=== PATIENT | male | born 1970 | race African-American/Black ===

== ENCOUNTER 2021-10-25 13:14 | Inpatient (IN) | payer OTHER ==
[2021-10-25] MEDS ORDERED: NICOTINE 10 MG CARTRIDGE (INHALER) IH PRN (13:37)
[2021-10-25] MEDS ORDERED: IBUPROFEN 400 MG TABLET (FP) PO PRN (13:37)
[2021-10-25] MEDS ORDERED: LOPERAMIDE HCL 2 MG CAPSULE PO PRN (13:37)
[2021-10-25] MEDS ORDERED: MENTHOL/PHENOL 1 EACH UD MM PRN (13:37)
[2021-10-25] MEDS ORDERED: ONDANSETRON *ODT* 4 MG TABLET SL PRN (13:37)
[2021-10-25] MEDS ORDERED: ACETAMINOPHEN 325 MG TABLET (FP) PO PRN (13:37)
[2021-10-25] MEDS ORDERED: BISMUTH SUBSALICYLATE 262 MG/15 ML BTL PO PRN (13:37)
[2021-10-25] MEDS ORDERED: MAGNESIUM CITRATE 300 ML BOTTLE PO PRN (13:37)
[2021-10-25] MEDS ORDERED: MAGNESIUM HYDROX 2400MG/30ML ORAL SUSPENSION 30 ML CUP PO PRN (13:37)
[2021-10-25] MEDS ORDERED: MAG HYDROX/AL HYDROX/SIMETH 30 ML UNIT-DOSE CUP PO PRN (13:37)
[2021-10-25 14:28] VITALS: BMI 23.6
[2021-10-25] MEDS: hydrOXYzine PAMOATE 25 MG CAPSULE (FP) PO SCH ×3 (18:14→22:31)
[2021-10-25] MEDS: NICOTINE 7 MG/24 HOURS TOPICAL PATCH TD SCH (18:14)
[2021-10-25] MEDS: PRENATAL VITAMINS W/ FOLIC ACID TABLET (FP) PO SCH (18:14)
[2021-10-25] MEDS: THIAMINE HCL 100 MG TABLET (FP) PO SCH (22:31)
[2021-10-25] MEDS: MELATONIN 5 MG TABLETS PO SCH (22:31)
[2021-10-26] MEDS: hydrOXYzine PAMOATE 25 MG CAPSULE (FP) PO SCH ×6 (05:55→22:06)
[2021-10-26] MEDS: METHOCARBAMOL 500 MG TABLET PO PRN (06:17)
[2021-10-26] MEDS: ACETAMINOPHEN 325 MG TABLET (FP) PO PRN ×2 (06:17→22:07)
[2021-10-26] MEDS ORDERED: methaDONE HCL 10 MG TABLET (FOR DETOX USE ONLY) PO ONE (09:13)
[2021-10-26] MEDS ORDERED: cloNIDine HCL 0.1 MG TABLET PO PRN (09:13)
[2021-10-26] MEDS: PRENATAL VITAMINS W/ FOLIC ACID TABLET (FP) PO SCH (10:01)
[2021-10-26] MEDS: diazePAM 5 MG TABLET PO PRN (10:02)
[2021-10-26] MEDS: GABAPENTIN 400 MG CAPSULE PO SCH ×3 (10:02→22:05)
[2021-10-26] MEDS: NICOTINE 7 MG/24 HOURS TOPICAL PATCH TD SCH (10:03)
[2021-10-26 14:13] LABS: HEMATOCRIT 35.6 % (35.4-49); HEMOGLOBIN 11.5 GM/dL (11.7-16.9); MCH 28.5 pg (25.7-33.7); MCHC 32.3 g/dl (32.0-35.9); MEAN CELL VOLUME 88.4 fl (80-96); MEAN PLT VOLUME 8.9 fl (7.5-11.1); PLATELET COUNT 232 10^3/uL (134-434); RBC 4.03 M/mm3 (4.00-5.60); WHITE BLOOD COUNT 5.2 K/mm3 (4.0-10.0)
[2021-10-26 14:23] LABS: ALBUMIN 2.9 g/dl (3.4-5.0); BLOOD UREA NITROGEN 13.4 mg/dL (7-18); CALCIUM 9.1 mg/dL (8.5-10.1)
[2021-10-26 14:26] LABS: CREATININE 0.8 mg/dL (0.55-1.3)
[2021-10-26 14:27] LABS: BILIRUBIN,TOTAL 0.6 mg/dL (0.2-1); TOT PROT 5.9 g/dl (6.4-8.2)
[2021-10-26] MEDS: FAMOTIDINE 20 MG TABLET PO SCH (17:28)
[2021-10-26] MEDS: MELATONIN 5 MG TABLETS PO SCH (22:06)
[2021-10-26] MEDS: ATORVASTATIN CA 80 MG TABLET (FP) PO SCH (22:06)
[2021-10-26] MEDS: THIAMINE HCL 100 MG TABLET (FP) PO SCH (22:06)
[2021-10-27] MEDS: ACETAMINOPHEN 325 MG TABLET (FP) PO PRN ×2 (07:04→22:05)
[2021-10-27] MEDS: hydrOXYzine PAMOATE 25 MG CAPSULE (FP) PO SCH ×6 (07:04→23:21)
[2021-10-27] MEDS: GABAPENTIN 400 MG CAPSULE PO SCH (07:04)
[2021-10-27] MEDS: METHOCARBAMOL 500 MG TABLET PO PRN ×2 (07:05→10:29)
[2021-10-27] MEDS ORDERED: methaDONE HCL 10 MG TABLET (FOR DETOX USE ONLY) ONE (08:59)
[2021-10-27] MEDS: diazePAM 5 MG TABLET PO PRN ×3 (10:29→22:09)
[2021-10-27] MEDS: PRENATAL VITAMINS W/ FOLIC ACID TABLET (FP) PO SCH (10:30)
[2021-10-27] MEDS: ASPIRIN COATED 81 MG TABLET.EC PO SCH (10:30)
[2021-10-27] MEDS: NICOTINE 7 MG/24 HOURS TOPICAL PATCH TD SCH (10:32)
[2021-10-27] MEDS: FAMOTIDINE 20 MG TABLET PO SCH (10:34)
[2021-10-27] MEDS: GABAPENTIN 300 MG CAPSULE PO SCH ×2 (14:53→22:07)
[2021-10-27] MEDS: MELATONIN 5 MG TABLETS PO SCH (22:05)
[2021-10-27] MEDS: THIAMINE HCL 100 MG TABLET (FP) PO SCH (22:08)
[2021-10-27] MEDS: ATORVASTATIN CA 80 MG TABLET (FP) PO SCH (23:20)
[2021-10-28] MEDS: hydrOXYzine PAMOATE 25 MG CAPSULE (FP) PO SCH ×5 (05:21→23:06)
[2021-10-28] MEDS: GABAPENTIN 300 MG CAPSULE PO SCH ×3 (05:21→23:03)
[2021-10-28] MEDS: ACETAMINOPHEN 325 MG TABLET (FP) PO PRN ×3 (05:22→17:43)
[2021-10-28] MEDS ORDERED: methaDONE HCL 10 MG TABLET (FOR DETOX USE ONLY) PO ONE (10:00)
[2021-10-28] MEDS: PRENATAL VITAMINS W/ FOLIC ACID TABLET (FP) PO SCH (11:16)
[2021-10-28] MEDS: METHOCARBAMOL 500 MG TABLET PO PRN ×2 (11:16→17:42)
[2021-10-28] MEDS: FAMOTIDINE 20 MG TABLET PO SCH (11:18)
[2021-10-28] MEDS: ASPIRIN COATED 81 MG TABLET.EC PO SCH (11:19)
[2021-10-28] MEDS: diazePAM 5 MG TABLET PO PRN ×3 (11:20→23:01)
[2021-10-28] MEDS: NICOTINE 7 MG/24 HOURS TOPICAL PATCH TD SCH (11:21)
[2021-10-28 14:08] LABS: SARS-CoV-2 NAA Not Detected (Not Detected)
[2021-10-28] MEDS: ATORVASTATIN CA 80 MG TABLET (FP) PO SCH (23:02)
[2021-10-28] MEDS: MELATONIN 5 MG TABLETS PO SCH (23:02)
[2021-10-28] MEDS: THIAMINE HCL 100 MG TABLET (FP) PO SCH (23:06)
[2021-10-29] MEDS: ACETAMINOPHEN 325 MG TABLET (FP) PO PRN ×3 (05:30→20:25)
[2021-10-29] MEDS: hydrOXYzine PAMOATE 25 MG CAPSULE (FP) PO SCH ×5 (05:38→22:41)
[2021-10-29] MEDS: GABAPENTIN 300 MG CAPSULE PO SCH ×3 (05:38→22:41)
[2021-10-29] MEDS: METHOCARBAMOL 500 MG TABLET PO PRN ×3 (06:47→22:41)
[2021-10-29] MEDS ORDERED: methaDONE HCL 10 MG TABLET (FOR DETOX USE ONLY) ONE (09:05)
[2021-10-29] MEDS: FAMOTIDINE 20 MG TABLET PO SCH (10:02)
[2021-10-29] MEDS: PRENATAL VITAMINS W/ FOLIC ACID TABLET (FP) PO SCH (10:02)
[2021-10-29] MEDS: NICOTINE 7 MG/24 HOURS TOPICAL PATCH TD SCH (10:05)
[2021-10-29] MEDS: ASPIRIN COATED 81 MG TABLET.EC PO SCH (10:06)
[2021-10-29] MEDS: ATORVASTATIN CA 80 MG TABLET (FP) PO SCH (22:40)
[2021-10-29] MEDS: THIAMINE HCL 100 MG TABLET (FP) PO SCH (22:41)
[2021-10-29] MEDS: MELATONIN 5 MG TABLETS PO SCH (22:41)
[2021-10-30] MEDS: METHOCARBAMOL 500 MG TABLET PO PRN (05:14)
[2021-10-30] MEDS: hydrOXYzine PAMOATE 25 MG CAPSULE (FP) PO SCH ×5 (05:14→22:52)
[2021-10-30] MEDS: GABAPENTIN 300 MG CAPSULE PO SCH ×3 (05:14→22:52)
[2021-10-30] MEDS ORDERED: ACETAMINOPHEN 325 MG TABLET (FP) PO PRN (07:24)
[2021-10-30] MEDS ORDERED: methaDONE HCL 10 MG TABLET (FOR DETOX USE ONLY) PO ONE (10:00)
[2021-10-30] MEDS: METHYL SALICYLATE/MENTHOL OINT 30 GM TUBE TP SCH ×2 (10:32→22:55)
[2021-10-30] MEDS: LIDOCAINE 5% TOPICAL PATCH TP SCH (10:32)
[2021-10-30] MEDS: PRENATAL VITAMINS W/ FOLIC ACID TABLET (FP) PO SCH (10:33)
[2021-10-30] MEDS: ASPIRIN COATED 81 MG TABLET.EC PO SCH (10:34)
[2021-10-30] MEDS: FAMOTIDINE 20 MG TABLET PO SCH (10:36)
[2021-10-30] MEDS: CYCLOBENZAPRINE HCL 10 MG TABLET (FP) PO PRN ×2 (10:36→22:53)
[2021-10-30] MEDS: NICOTINE 7 MG/24 HOURS TOPICAL PATCH TD SCH (10:40)
[2021-10-30] MEDS: ACETAMINOPHEN 325 MG TABLET (FP) PO PRN (17:51)
[2021-10-30] MEDS ORDERED: LIDOCAINE PATCH REMOVAL MC SCH (22:00)
[2021-10-30] MEDS: ATORVASTATIN CA 80 MG TABLET (FP) PO SCH (22:51)
[2021-10-30] MEDS: THIAMINE HCL 100 MG TABLET (FP) PO SCH (22:52)
[2021-10-30] MEDS: MELATONIN 5 MG TABLETS PO SCH (22:52)
[2021-10-31] MEDS: hydrOXYzine PAMOATE 25 MG CAPSULE (FP) PO SCH ×2 (05:23→10:28)
[2021-10-31] MEDS: GABAPENTIN 300 MG CAPSULE PO SCH (05:23)
[2021-10-31 09:24] VITALS: BP 126/83; PULSE 80; TEMP 97.3
[2021-10-31] MEDS: ASPIRIN COATED 81 MG TABLET.EC PO SCH (10:28)
[2021-10-31] MEDS: PRENATAL VITAMINS W/ FOLIC ACID TABLET (FP) PO SCH (10:28)
[2021-10-31] MEDS: FAMOTIDINE 20 MG TABLET PO SCH (10:28)
[2021-10-31] MEDS: LIDOCAINE 5% TOPICAL PATCH TP SCH (10:28)
[2021-10-31] MEDS: NICOTINE 7 MG/24 HOURS TOPICAL PATCH TD SCH (10:28)
[2021-10-31] MEDS: METHYL SALICYLATE/MENTHOL OINT 30 GM TUBE TP SCH (10:29)
[2021-10-31] MEDS: CYCLOBENZAPRINE HCL 10 MG TABLET (FP) PO PRN (10:30)
[2021-10-31] MEDS: ACETAMINOPHEN 325 MG TABLET (FP) PO PRN (10:30)
== END 2021-10-31 11:30 | disposition other institution (70) | DRG 773 ==
LOC: YASAS 13:14 → Y3N 15:19
PROVIDERS: ADMIT Allergy & Immunology; ATTEND Allergy & Immunology
PROC: HZ2ZZZZ Detoxification Services for Substance Abuse Treatment (ICD-10-PCS; principal; 2021-10-25)
DX: F11.23 Opioid dependence with withdrawal (principal); F12.20 Cannabis dependence, uncomplicated; F17.210 Nicotine dependence, cigarettes, uncomplicated; F25.9 Schizoaffective disorder, unspecified; G40.909 Epilepsy, unspecified, not intractable, without status epilepticus; E78.5 Hyperlipidemia, unspecified; J45.909 Unspecified asthma, uncomplicated; M17.0 Bilateral primary osteoarthritis of knee; M54.50 Low back pain, unspecified; G89.29 Other chronic pain; I25.10 Atherosclerotic heart disease of native coronary artery without angina pectoris; I25.2 Old myocardial infarction; Z86.19 Personal history of other infectious and parasitic diseases; Z88.6 Allergy status to analgesic agent; Z91.013 Allergy to seafood; Z86.59 Personal history of other mental and behavioral disorders
CPT/HCPCS: 36415; 71046-TC-FY; 80053; 85027; 86593; 86780; 93005; 93010; C9803; U0003; U0005

== ENCOUNTER 2021-10-31 11:55 | Inpatient (IN) | payer OTHER ==
[2021-10-31] MEDS ORDERED: NICOTINE 10 MG CARTRIDGE (INHALER) IH PRN (13:47)
[2021-10-31] MEDS ORDERED: guaiFENesin 200 MG/10 ML 10 ML UNIT-DOSE CUPS PO PRN (13:47)
[2021-10-31] MEDS ORDERED: LOPERAMIDE HCL 2 MG CAPSULE PO PRN (13:47)
[2021-10-31] MEDS ORDERED: MENTHOL/PHENOL 1 EACH UD MM PRN (13:47)
[2021-10-31] MEDS ORDERED: MAGNESIUM HYDROX 2400MG/30ML ORAL SUSPENSION 30 ML CUP PO PRN (13:47)
[2021-10-31] MEDS ORDERED: hydrOXYzine PAMOATE 25 MG CAPSULE (FP) PO PRN (13:47)
[2021-10-31] MEDS ORDERED: MAG HYDROX/AL HYDROX/SIMETH 30 ML UNIT-DOSE CUP PO PRN (13:47)
[2021-10-31] MEDS ORDERED: P-EPHED 60MG/TRIPROLIDI 2.5MG TABLET PO PRN (13:47)
[2021-10-31] MEDS ORDERED: MAGNESIUM CITRATE 300 ML BOTTLE PO PRN (13:47)
[2021-10-31] MEDS ORDERED: CYCLOBENZAPRINE HCL 10 MG TABLET (FP) PO PRN (13:49)
[2021-10-31] MEDS: GABAPENTIN 300 MG CAPSULE PO SCH ×2 (14:20→21:31)
[2021-10-31] MEDS: ACETAMINOPHEN 325 MG TABLET (FP) PO PRN ×2 (14:24→21:31)
[2021-10-31] MEDS ORDERED: ATORVASTATIN CA 40 MG TABLET (FP) ONE (21:30)
[2021-10-31] MEDS ORDERED: ATORVASTATIN CA 80 MG TABLET (FP) PO SCH (22:00)
[2021-10-31] MEDS ORDERED: MELATONIN 5 MG TABLETS PO SCH (22:00)
[2021-10-31] MEDS ORDERED: THIAMINE HCL 100 MG TABLET (FP) PO SCH (22:00)
[2021-11-01] MEDS: ACETAMINOPHEN 325 MG TABLET (FP) PO PRN ×2 (01:40→06:21)
[2021-11-01] MEDS: GABAPENTIN 300 MG CAPSULE PO SCH (06:21)
[2021-11-01 06:54] VITALS: BP 132/91; PULSE 73; TEMP 98.4
[2021-11-01] MEDS ORDERED: PRENATAL VITAMINS W/ FOLIC ACID TABLET (FP) PO SCH (10:00)
[2021-11-01] MEDS ORDERED: NICOTINE 7 MG/24 HOURS TOPICAL PATCH TD SCH (10:00)
[2021-11-01] MEDS ORDERED: FAMOTIDINE 20 MG TABLET PO SCH (10:00)
[2021-11-01] MEDS ORDERED: ASPIRIN COATED 81 MG TABLET.EC PO SCH (10:00)
== END 2021-11-01 08:53 | disposition left against medical advice (07) | DRG 770 ==
LOC: YASAS 11:55 → Y3W 11:57
PROVIDERS: ADMIT Allergy & Immunology; ATTEND Allergy & Immunology
PROC: HZ42ZZZ Group Counseling for Substance Abuse Treatment, Cognitive-Behavioral (ICD-10-PCS; principal; 2021-10-31)
DX: F11.20 Opioid dependence, uncomplicated (principal); F17.210 Nicotine dependence, cigarettes, uncomplicated; E78.5 Hyperlipidemia, unspecified; M17.0 Bilateral primary osteoarthritis of knee; J45.909 Unspecified asthma, uncomplicated; G40.909 Epilepsy, unspecified, not intractable, without status epilepticus; Z88.6 Allergy status to analgesic agent; Z91.013 Allergy to seafood